=== PATIENT | female | born 1990 | race Two or more races ===

== ENCOUNTER 2022-10-25 07:33 | Emergency (ER) | payer OTHER ==
[2022-10-25 07:42] VITALS: BP 116/55
--- NOTE | 2022-10-25 08:06 | ED Physician Documentation ---
PD HPI UPPER EXT INJURY - Stated complaint Stated Complaint: SWOLLEN FINGER - Chief complaint Chief Complaint: Ext Problem - History obtained from History obtained from: Patient - History of Present Illness Location: Left, Finger (middle) Type of injury: Other (she put a ring that she usual wears on ring finger onto her middle finger and it was tight, causing the finger to swell and now she can't get it off.) Where injury occurred: Home Timing - onset: Today Timing - details: Gradual onset Worsened by: Moving Associated symptoms: Swelling Similar symptoms before: Has not had sx before Review of Systems Neurologic: reports: Numbness (was developing some numbness of finger as it was swelling.). denies: Focal weakness PD PAST MEDICAL HISTORY - Past Medical History Past Medical History: No - Allergies Allergies/Adverse Reactions: Allergies Allergy/AdvReac Type Severity Reaction Status Date / Time azithromycin Allergy Emesis Verified 10/25/22 07:42 lactose Allergy Hives Verified 10/25/22 07:43 PD ED PE NORMAL - Vitals Vital signs reviewed: Yes - General General: Alert and oriented X 3, No acute distress, Well developed/nourished - Derm Derm: Normal color, Warm and dry - Extremities Extremities: Other (left middle finger with swelling and rubor distal to tight ring at base. ) - Neuro Neuro: No motor deficit, No sensory deficit Results - Vitals Vitals: Vital Signs - 24 hr 10/25/22 07:40 Temperature 36.9 C Heart Rate 67 Respiratory 16 Rate Blood Pressure 116/55 L O2 Saturation 100 Oxygen O2 Source Room air PD Medical Decision Making - ED course Complexity details: considered differential (swelling decreasing readily after ring removed by ward clerk.), d/w patient Departure - Departure Disposition: 01 Home, Self Care Clinical Impression: Tight ring on finger, Finger swelling Condition: Stable Record reviewed to determine appropriate education?: Yes Comments: I presume this will keep getting better now that the ring is off. You could do some elevation of the finger and some cool towels to help reduce swelling as well. Discharge Date/Time: 10/25/22 08:43
== END 2022-10-25 08:43 | disposition home or self-care (01) ==
LOC: ED 07:33
DX: S60.443A External constriction of left middle finger, initial encounter (principal); X58.XXXA Exposure to other specified factors, initial encounter
CPT/HCPCS: 99281